=== PATIENT | female | born 2000 | race Caucasian/White ===

== ENCOUNTER 2021-11-29 21:51 | Emergency (ER) | payer OTHER ==
[2021-11-30 01:40] LABS: BASOPHIL 0.2 % (0-2); HCT 42.3 % (37.0-47.0); HGB 13.8 g/dl (12.5-16.0); LYMPHOCYTE 30.3 % (15-48); MCH 27.8 pg (25.0-31.0); MCHC 32.6 g/dL (32.0-36.0); MCV 85.3 fL (78.0-100.0); MONOCYTE 7.3 % (0-12); MPV 10.2 fL (6.0-9.5); NRBC 0; PLT 314 K/uL (150-400); RBC 4.96 M/uL (4.20-5.40); RDW 13.4 % (11.5-14.0); WBC 8.2 K/uL (4.0-10.5)
[2021-11-30 01:40] LABS: BILIRUBIN NEGATIVE (NEGATIVE); BLOOD 1+ Ery/uL (NEGATIVE); CLARITY CLEAR (CLEAR); COLOR YELLOW (YELLOW); GLUCOSE (U) NORMAL (NORMAL); LEUKOCYTES 1+ Leu/uL (NEGATIVE); NITRITE NEGATIVE (NEGATIVE); PROTEIN NEGATIVE (NEGATIVE); SPECIFIC GRAVITY >=1.030 (1.001-1.030); UROBILINOGEN 0.2 mg/dL (0.2-1.0)
[2021-11-30 01:54] LABS: BACTERIA TRACE
[2021-11-30 01:59] LABS: URINARY WBC 20-50
[2021-11-30 01:59] LABS: ALBUMIN 4.1 g/dL (3.4-5.0); BILIRUBIN - TOTAL 0.5 mg/dL (0.2-1.0); BUN/CREAT RATIO (CALC) 21.2 RATIO; CREATININE 0.8 mg/dL (0.51-0.95); GLOBULIN (CALCULATION) 3.6 g/dL; TOTAL PROTEIN 7.7 g/dL (6.4-8.2)
[2021-11-30 02:00] LABS: RENAL EPITHELIAL CELLS RARE; TRANSITIONAL EPITHELIAL CELLS RARE
[2021-11-30] MEDS ORDERED: KEFLEX250 MG PO (03:12)
== END 2021-11-30 04:06 | disposition home or self-care (01) ==
LOC: FER 21:51
PROVIDERS: Emergency Medicine
DX: R10.2 Pelvic and perineal pain (principal); F17.200 Nicotine dependence, unspecified, uncomplicated; Z88.0 Allergy status to penicillin
CPT/HCPCS: 36415; 76830; 80053; 81001; 85025; 87088; J0696; J1885

== ENCOUNTER 2021-12-19 14:06 | Emergency (ER) | payer OTHER ==
[~2021-12-19 14:06] MED LIST: KEFLEX250 MG PO
[2021-12-19] MEDS ORDERED: CYCLOBENZAPRINE10 MG PO (16:18)
[2021-12-19] MEDS ORDERED: MEDROL 4MG DOSEP4 MG PO (16:18)
== END 2021-12-19 16:31 | disposition home or self-care (01) ==
LOC: FER 14:06
DX: S13.4XXA Sprain of ligaments of cervical spine, initial encounter (principal); S23.3XXA Sprain of ligaments of thoracic spine, initial encounter; S33.5XXA Sprain of ligaments of lumbar spine, initial encounter; V49.40XA Driver injured in collision with unspecified motor vehicles in traffic accident, initial encounter; Z28.311 Partially vaccinated for COVID-19
CPT/HCPCS: 70450; 72125; 72128; 72131; J1885

== ENCOUNTER → 2022-03-19 13:12 | Emergency (ER) | payer OTHER ==
[~2022-03-19 13:12] MED LIST changes: +CYCLOBENZAPRINE10 MG PO; +MEDROL 4MG DOSEP4 MG PO
== END | disposition left against medical advice (07) ==
LOC: FER 13:12
DX: Z53.21 Procedure and treatment not carried out due to patient leaving prior to being seen by health care provider (principal)